=== PATIENT | female | born 1955 | race Caucasian/White ===

== ENCOUNTER → 2017-03-22 | Outpatient (CLI) | payer BC ==
--- NOTE | 2017-03-22 12:43 | XR ---
EXAMINATION TYPE: XR thoracic spine complete DATE OF EXAM: 03/22/2017 CLINICAL HISTORY: Fall with mid back pain. TECHNIQUE: Frontal, lateral, and swimmer's view of thoracic spine are obtained. COMPARISON: None. FINDINGS: Thoracic spine show satisfactory alignment without evidence of acute fracture or dislocatio n. Vertebral body heights and disc space heights are preserved. No displaced fracture within the vis ualized ribs. Visualized lungs are clear. Cardiac silhouette is prominent in size. IMPRESSION: No acute fracture or dislocation is seen in the thoracic spine.
== END | disposition home or self-care (01) ==
LOC: RADXRMAIN 12:08
PROVIDERS: ATTEND Family Medicine
DX: M54.14 Radiculopathy, thoracic region (principal)
CPT/HCPCS: 72072

== ENCOUNTER → 2017-04-05 | Outpatient (CLI) | payer BC ==
--- NOTE | 2017-04-05 08:42 | US ---
EXAMINATION TYPE: US abdomen complete DATE OF EXAM: 04/05/2017 COMPARISON: NONE CLINICAL HISTORY: K83.9 Disease of biliary tract. Patient stated has constant right upper back pain r adiating to front x 1 month and was told possible dislocated rib per chiropractor. EXAM MEASUREMENTS: Liver Length: 15.0 cm Gallbladder Wall: 0.2 cm CBD: 0.5 cm Spleen: 10.2 cm Right Kidney: 9.9 x 6.1 x 5.1 cm Left Kidney: 10.0 x 6.0 x 5.4 cm Pancreas: wnl Liver: There is slight heterogeneity of the hepatic parenchyma with decreased visualization of the p ortal triads. This finding limits evaluation for underlying hepatic masses. No intrahepatic biliary d uctal dilatation. Gallbladder: wnl Evidence for sonographic Harris's sign: Yes CBD: wnl Spleen: wnl Right Kidney: wnl Left Kidney: wnl Upper IVC: wnl Abd Aorta: wnl IMPRESSION: Mild hepatic parenchymal heterogeneity, most commonly relating to hepatic steatosis. No s onographic evidence of cholelithiasis or cholecystitis. No intrahepatic biliary ductal dilatation.
== END | disposition home or self-care (01) ==
LOC: RADUSWWP 07:37
PROVIDERS: ATTEND Family Medicine
DX: K76.0 Fatty (change of) liver, not elsewhere classified (principal)
CPT/HCPCS: 76700

== ENCOUNTER → 2017-04-12 | Outpatient (CLI) | payer BC ==
--- NOTE | 2017-04-12 09:21 | NM ---
EXAMINATION TYPE: NM hepatobiliary w EF DATE OF EXAM: 04/12/2017 COMPARISON: Complete abdominal ultrasound from one week ago. HISTORY: Disorder of biliary tract per order. Epigastric pain per order. TECHNIQUE: After the intravenous administration of 5.49 mCi Tc 99m Mebrofenin hepatobiliary scintigra phy is performed. Immediate images post injection. FINDINGS: There is satisfactory initial accumulation of tracer by the liver. The gallbladder is visualized wit hin 20 minutes. The small bowel activity is now well seen even after 60 minutes. At one hour 8 ounc es of oral ensure plus is given to mimic CCK and gallbladder ejection fraction is calculated at 98 %, not deviated from the normal range. Therefore there is no scintigraphic evidence of cystic or commo n bile duct obstruction to suggest acute cholecystitis. IMPRESSION: Ejection fraction is 98%, some consider this abnormal or a hyperkinetic response.
== END | disposition home or self-care (01) ==
LOC: RADNMMAIN 06:58
PROVIDERS: ATTEND Family Medicine
DX: K83.9 Disease of biliary tract, unspecified (principal)
CPT/HCPCS: 78226; A9537

== ENCOUNTER → 2017-04-22 | Outpatient (CLI) | payer BC ==
--- NOTE | 2017-04-22 16:27 | BD ---
EXAMINATION TYPE: MG DEXA axial skeleton. DATE OF EXAM: 04/22/2017 COMPARISON: 12.30.2006 CLINICAL HISTORY: 61-year-old female Z78.0 POST MAEGAN W/O HRT Height: 60.3 Weight: 204 FRAX RISK QUESTIONS: Alcohol (3 or more units per day): NO Family History (Parent hip fracture): NO Glucocorticoids (More than 3mos): NO (Ex: prednisone, prednisolone, methylprednisolone, dexamethasone, and hydrocortisone). History of Fracture in Adulthood: NO Secondary Osteoporosis: NO 1. Type 1 Diabetes: NO 2. Hyperthyroidism: NO 3. Menopause before 45: NO 4. Malnutrition: NO 5. Chronic liver disease: NO Rheumatoid Arthritis: NO Current Tobacco Use: NO RISK FACTORS HISTORY OF: Family History of Osteoporosis: NO Active: YES Diet low in dairy products/other sources of calcium: YES, ALLERGIC Postmenopausal woman: TOTAL HYSTERECTOMY AT AGE 48 Hyperparathyroidism: NO Adrenal Insufficiency: NO MEDICATIONS: Prednisone or other steroids: ASTHMA INHALERS PRN, STEROID PACS ON AND OFF....LAST TAKEN 2016 How Long: YRS Thyroid Medications: IN THE PAST FOR 4 YRS How Lon YRS...BUT NONE NOW Additional Medications: VIT D Additional History: NONE TO NOTE EXAM MEASUREMENTS: Bone mineral densitometry was performed using the [employer] System. Bone mineral density as measured about the Lumbar spine is: ----- L1-L4(G/cm2): 1.094 T Score Values are as follows: ----- L1: -0.6 ----- L2: -1.2 ----- L3: -0.2 ----- L4: -1.0 ----- L1-L4: -0.7 Bone mineral density has: Decreased -0.5% since study of: 12.30.2006 Bone mineral density about the R hip (g/cm2): 1.029 Bone mineral density about the L hip (g/cm2): 1.139 T Score values are as follows: -----R Neck: -0.8 -----L Neck: -0.8 -----R Total: 0.2 -----L Total: 1.0 Bone mineral density has: Decreased -3.8% since study of: 12.30.2006 FRAX%'S: THERE IS A 6.1% CHANCE OF A MAJOR OSTEOPOROTIC FX AND A 0.3% FOR A HIP FX....PROBABILITY OF FX IN 10 YRS TIME IMPRESSION: Normal (Values between +1 and -1 indicate normal bone mass). Consider repeating this study in 5 year s or sooner if there is some new clinical indication. Note that measurements are bordering on osteope luis in the lumbar spine. NOTE: T-SCORE=SD OF THE YOUNG ADULT MEAN.
--- NOTE | 2017-04-23 07:30 | MM ---
Reason for exam: screening (asymptomatic). Last mammogram was performed 2 years and 2 months ago. History: Patient is postmenopausal and is nulliparous. Family history of breast cancer in aunt at age 62 and breast cancer in aunt at age 64. Physical Findings: A clinical breast exam by your physician is recommended on an annual basis and results should be correlated with mammographic findings. MG Screening Mammo w CAD Bilateral CC and MLO view(s) were taken. Prior study comparison: February 18, 2015, bilateral MG diagnostic mammo w CAD [facility]. March 02, 2013, bilateral digital screening mammo w/CAD. The breast tissue is almost entirely fat. No suspicious abnormality. No significant changes when compared with prior studies. ASSESSMENT: Negative, BI-RAD 1 RECOMMENDATION: Routine screening mammogram of both breasts in 1 year.
== END | disposition home or self-care (01) ==
LOC: RADMAMWWP 08:07
PROVIDERS: ATTEND Family Medicine
DX: Z12.31 Encounter for screening mammogram for malignant neoplasm of breast (principal); M89.9 Disorder of bone, unspecified; Z78.0 Asymptomatic menopausal state
CPT/HCPCS: 77080; G0202

== ENCOUNTER → 2017-08-05 | Outpatient (CLI) | payer BC ==
--- NOTE | 2017-08-05 11:26 | MR ---
EXAMINATION TYPE: MR thoracic spine wo con DATE OF EXAM: 08/05/2017 COMPARISON: NONE HISTORY: 61-year-old female Pain in thoracic spine, right side TECHNIQUE: Multiplanar, multisequence images of the thoracic spine were obtained without IV contrast. FINDINGS: Accentuated midthoracic kyphosis. Alignment is maintained. Vertebral body heights are preserved thoug h there may be minimal superior endplate compression deformity of T3 which is chronic given normal agustina ne marrow signal. Fatty matrix hemangioma within T11 vertebral body. No suspicious bone marrow replacement. Mild multilevel degenerative disc disease characterized by disc desiccation and mild disc space narro wing, greatest in the mid thoracic spine. However, at T2-3 and T3-T4, central disc protrusions are present which impresses onto the ventral cor d. However, no significant spinal canal stenosis is seen. At T6/T7, there is a small right paracentral disc protrusion which abuts the right ventral cord. No s ignificant spinal canal stenosis. At T7-T8, left paracentral broad-based disc protrusion without significant canal stenosis. Facet arthropathy lower thoracic spine but without any significant neuroforaminal stenosis. No discrete T2-weighted cord signal abnormality. No prevertebral or paravertebral soft tissue abnormality. IMPRESSION: 1. Mild multilevel degenerative disc disease with disc desiccation and small disc protrusions greates t in the mid thoracic spine. 2. The small disc herniations are largest at T2-T3 and T3-T4 where they focally indent the ventral co rd, without significant spinal canal stenosis. 3. There may be a minimal chronic superior endplate compression deformity of T3. 4. Mild facet arthropathy lower thoracic spine. No significant neural foraminal stenosis.
== END | disposition home or self-care (01) ==
LOC: RADMRIMAIN 08:43
PROVIDERS: ATTEND Family Medicine
DX: M51.24 Other intervertebral disc displacement, thoracic region (principal); M51.34 Other intervertebral disc degeneration, thoracic region; M46.84 Other specified inflammatory spondylopathies, thoracic region
CPT/HCPCS: 72146

== ENCOUNTER → 2017-08-13 | Outpatient (CLI) | payer BC ==
[2017-08-14 00:32] LABS: Progesterone 0.9 ng/mL
== END | disposition home or self-care (01) ==
LOC: MMGSC 11:04
PROVIDERS: ATTEND Obstetrics & Gynecology
DX: N95.1 Menopausal and female climacteric states (principal); G47.00 Insomnia, unspecified; M85.80 Other specified disorders of bone density and structure, unspecified site
CPT/HCPCS: 36415; 82670; 83001; 84144; 84403

== ENCOUNTER 2019-01-16 07:23 | Emergency (ER) | payer BC ==
[2019-01-16] MEDS ORDERED: PROPARACAINE 0.5% OPHTH DROPS 15 ML BTL RIGHT EYE STA (07:33)
--- NOTE | 2019-01-16 07:36 | ED ---
Eye Problem HPI - General Chief complaint: Eye Problems Stated complaint: FB in eye Time Seen by Provider: 01/16/19 07:29 Source: patient Mode of arrival: ambulatory Limitations: no limitations - History of Present Illness Initial comments: 63-year-old female presents today for chief complaint of left eye discomfort. Patient states that she was in her yard when she felt something flew into her left eye. She states she was walking at the time. She states she was not grinding metal. She states that she thought it was a bug. She states a few hours after the fall into the eye she had eye watering and slight redness and discomfort. Patient denies any headache nausea vomiting, working with welding, cutting wood. Patient states that when she woke up her eye was tender and sensitive to light so she presented for evaluation of possible foreign body of the left eye. Remaining ROS (-). Upon arrival patient appears well there are no signs of acute distress. - Related Data Home Medications Medication Instructions Recorded Confirmed Ergocalciferol [Vitamin D2] 50,000 unit PO MACKEY 01/16/19 01/16/19 Previous Rx's Medication Instructions Recorded Erythromycin Ophth Oint [Romycin 1 applic LEFT EYE QID 5 Days #1 01/16/19 Ophth Oint] tube Allergies Allergy/AdvReac Type Severity Reaction Status Date / Time No Known Allergies Allergy Verified 01/16/19 08:04 Review of Systems ROS Statement: Those systems with pertinent positive or pertinent negative responses have been documented in the HPI. ROS Other: All systems not noted in ROS Statement are negative. Past Medical History Past Medical History: No Reported History History of Any Multi-Drug Resistant Organisms: None Reported Past Surgical History: Hysterectomy Past Psychological History: Depression Smoking Status: Never smoker Past Alcohol Use History: None Reported Past Drug Use History: None Reported General Exam - General Exam Comments Initial Comments: General: The patient is awake and alert, in no distress, and does not appear acutely ill. Eye: +3 mm pupils are equal, round and reactive to light, extra-ocular movemen ts are intact. No nystagmus. There is normal conjunctiva bilaterally. No signs of icterus. VA 20/70 OD, 20/30 OS, 20/30 OU. Mild swelling of left upper lid. No evidence of foreign body under the left lid. Upon fluorescein examination there is a small corneal abrasion at the 3 o'clock position just left of the pupil. Patient has relief with proparacaine. Ears, nose, mouth and throat: There are moist mucous membranes and no oral lesions. Neck: The neck is supple, there is no tenderness or JVD. Cardiovascular: There is a regular rate and rhythm. No murmur, rub or gallop is appreciated. Respiratory: Lungs are clear to auscultation, respirations are non-labored, breath sounds are equal. No wheezes, stridor, rales, or rhonchi. Musculoskeletal: Normal ROM, no tenderness. Strength 5/5. Sensation intact. Radial pulses equal bilaterally 2+. Neurological: A&O x 3. CN II-XII intact grossly, There are no obvious motor or sensory deficits. Coordination appears grossly intact. Speech is normal. Skin: Skin is warm and dry and no rashes or lesions are noted. Psychiatric: Cooperative, appropriate mood & affect, normal judgment. Limitations: no limitations Course Vital Signs 01/16/19 01/16/19 07:25 07:58 Temperature 98.1 F 97.1 F L Pulse Rate 64 68 Respiratory 16 18 Rate Blood Pressure 154/90 134/86 O2 Sat by Pulse 97 95 Oximetry Medical Decision Making - Medical Decision Making 63-year-old presenting for sensation of foreign body left eye. Leaflets with proparacaine. Physical examination reveals small corneal abrasion. No evidence of foreign body. No foreign body on lid examination. Patient be started on erythromycin given up large follow-up. Return parameters were discussed the patient verbalized understanding. Patient is not a contact lens user. Case is discussed with attending Dr. Muñoz was agreeable care plan discharge at this time. Disposition Clinical Impression: Corneal abrasion, left Disposition: HOME SELF-CARE Condition: Good Instructions (If sedation given, give patient instructions): Corneal Abrasion (ED) Additional Instructions: Please use medication as discussed. Please follow-up with ophthalmology within the next 24-48 hours. Please return to emergency room if the symptoms increase or worsen or for any other concerns. Prescriptions: Erythromycin Ophth Oint [Romycin Ophth Oint] 1 applic LEFT EYE QID 5 Days #1 tube Is patient prescribed a controlled substance at d/c from ED?: No Referrals: Wilma Foster MD [Primary Care Provider] - 1-2 days Stephanie Marley MD [STAFF PHYSICIAN] - 1-2 days Time of Disposition: 07:49
[2019-01-16 07:59] VITALS: BP 134/86; PULSE 68; RESP 18; TEMP 97.1
== END 2019-01-16 07:59 | disposition home or self-care (01) ==
LOC: EC 07:23
DX: S05.02XA Injury of conjunctiva and corneal abrasion without foreign body, left eye, initial encounter (principal); Z79.899 Other long term (current) drug therapy; W22.8XXA Striking against or struck by other objects, initial encounter; Y92.096 Garden or yard of other non-institutional residence as the place of occurrence of the external cause
CPT/HCPCS: 99283

== ENCOUNTER → 2020-03-12 | Outpatient (CLI) | payer BC ==
--- NOTE | 2020-03-13 09:55 | MM ---
Reason for exam: screening (asymptomatic). Last mammogram was performed 2 years and 11 months ago. History: Patient is postmenopausal and is nulliparous. Family history of breast cancer in aunt at age 62 and breast cancer in aunt at age 64. Physical Findings: A clinical breast exam by your physician is recommended on an annual basis and results should be correlated with mammographic findings. MG 3D Screening Mammo W/Cad Bilateral CC and MLO view(s) were taken. Prior study comparison: April 22, 2017, bilateral MG screening mammo w CAD. February 18, 2015, bilateral MG diagnostic mammo w CAD [facility]. The breast tissue is almost entirely fat. There is no discrete abnormality. No significant changes when compared with prior studies. ASSESSMENT: Negative, BI-RAD 1 RECOMMENDATION: Routine screening mammogram of both breasts in 1 year.
== END | disposition home or self-care (01) ==
LOC: RADMAMWWP 15:20
PROVIDERS: ATTEND Obstetrics & Gynecology
DX: Z12.31 Encounter for screening mammogram for malignant neoplasm of breast (principal)
CPT/HCPCS: 77063; 77067

== ENCOUNTER → 2020-07-01 | Outpatient (CLI) | payer BC ==
--- NOTE | 2020-07-01 14:45 | US ---
EXAMINATION TYPE: US thyroid st tissue head/neck DATE OF EXAM: 07/01/2020 COMPARISON: US 2013 CLINICAL HISTORY: E03.9 Hypothyroidism, unspecified. Abnormal labs GLAND SIZE: Right Lobe: 4.3 x 1.1 x 1.3 cm Overall Parenchyma: heterogenous Left Lobe: 4.2 x 1.2 x 1.2 cm Overall Parenchyma: heterogeneous Isthmus Thickness: 0.2 cm NODULES RIGHT: # of nodules measured on right: 1 1. 0.5 X 0.4 x 0.4 cm mixed cystic and solid, hypoechoic nodule, which is wider than tall, with smo oth margins, without echogenic foci. Prior size: Not visualized on prior Bilateral neck scanned, no evidence of lymphadenopathy. Small, sub-centimeter nodule right lobe. Slightly heterogeneous small size thyroid with 5 mm mixed nodule right thyroid lobe seen on current s tudy not clearly seen on prior study. IMPRESSION: As above. No worrisome greater than 1 cm thyroid nodules. Small-sized thyroid redemonstra deja.
== END | disposition home or self-care (01) ==
LOC: RADUSWWP 14:19
PROVIDERS: ATTEND Family Medicine
DX: E04.1 Nontoxic single thyroid nodule (principal); E07.89 Other specified disorders of thyroid; E03.9 Hypothyroidism, unspecified
CPT/HCPCS: 76536

== ENCOUNTER → 2021-01-06 | Outpatient (CLI) | payer BC ==
--- NOTE | 2021-01-06 12:34 | US ---
EXAMINATION TYPE: US thyroid st tissue head/neck DATE OF EXAM: 01/06/2021 COMPARISON: US 07/01/20, 12/13/12 CLINICAL HISTORY: E04.1 Thyroid nodule. GLAND SIZE: Right Lobe: 4.2 x 1.5 x 1.3 cm Overall Parenchyma: homogenous Left Lobe: 4.1 x 1.4 x 1.3 cm Overall Parenchyma: homogeneous Isthmus Thickness: 0.4 cm NODULES RIGHT: # of nodules measured on right: 1 1. 0.7 X 0.5 x 0.4 cm, mid lateral, solid or almost completely solid, hypoechoic nodule, which is w ider than tall, with smooth margins, without echogenic foci. Prior size: 0.5 x 0.4 x 0.4 cm LEFT: # of nodules measured on left: 1 1. 0.7 X 0.4 x 0.4 cm, lower medial, solid or almost completely solid, hypoechoic nodule, which is wider than tall, with smooth margins, without echogenic foci. Prior size: Not seen previously ISTHMUS: # of nodules measured in the isthmus: 0 Bilateral neck scanned, no evidence of lymphadenopathy. IMPRESSION: 1. The right thyroid nodule has increased in size since the prior examination now measuring up to 0.7 cm. 2. New 0.7 cm hypoechoic nodule in the left thyroid. 2017 ACR TI-RADS LEVEL: TR-RADS 4 - Moderately Suspicious: Follow if > 1 cm, FNA if > 1.5 cm *Highest TI-RADS level nodule reported
== END | disposition home or self-care (01) ==
LOC: RADUSWWP 11:08
PROVIDERS: ATTEND Family Medicine
DX: E04.2 Nontoxic multinodular goiter (principal)
CPT/HCPCS: 76536

== ENCOUNTER → 2022-02-24 | Outpatient (CLI) | payer BC ==
--- NOTE | 2022-02-24 13:26 | US ---
EXAMINATION TYPE: US carotid duplex BILAT DATE OF EXAM: 02/24/2022 COMPARISON: NONE CLINICAL HISTORY: R42 VERTIGO. Pt states vertigo TECHNIQUE: Carotid duplex ultrasound examination. Indirect Doppler criteria was utilized. FINDINGS: EXAM MEASUREMENTS: RIGHT: Peak Systolic Velocity (PSV) cm/sec ----- Right CCA: 79.9 ----- Right ICA: 72.9 ----- Right ECA: 63.3 ICA/CCA ratio: 0.9 RIGHT: End Diastole cm/sec ----- Right CCA: 18.8 ----- Right ICA: 29.3 ----- Right ECA: 17.1 LEFT: Peak Systolic Velocity (PSV) cm/sec ----- Left CCA: 63.3 ----- Left ICA: 79.9 ----- Left ECA: 79.0 ICA/CCA ratio: 1.3 LEFT: End Diastole cm/sec ----- Left CCA: 21.5 ----- Left ICA: 33.7 ----- Left ECA: 15.4 VERTEBRALS (direction of flow): Right Vertebral: Antegrade Left Vertebral: Antegrade Rhythm: Normal SENIOR [employer]INICAL PROJECT MANAGER NOTES: No significant stenosis seen IMPRESSION: Less than 50% stenosis of the bilateral carotid bifurcations. Criteria for Assigning % of Stenosis / Diameter reduction (Estimation based on the indirect measurements of the internal carotid artery velocities (ICA PSV). 1. Normal (no stenosis)=ICA PSV < 125 cm/s: ratio < 2.0: ICA EDV<40 cm/s. 2. Less than 50% stenosis=ICA PSV < 125 cm/s: ratio < 2.0: ICA EDV<40 cm/s. 3. 50 to 69% stenosis=ICA PSV of 125 to 230 cm/s: ration 2.0 ? 4.0: ICA EDV 40-100 cm/s. 4. Greater than 70% stenosis to near occlusion= ICA PSV > 230 cm/s: ratio > 4.0: ICA EDV > 100 cm/s. 5. Near occlusion= ICA PSV velocities may be low or undetectable: variable ratio and ICA EDV. 6. Total occlusion=unable to detect flow.
== END | disposition home or self-care (01) ==
LOC: RADUSWWP 12:55
PROVIDERS: ATTEND Family Medicine
DX: I65.23 Occlusion and stenosis of bilateral carotid arteries (principal)
CPT/HCPCS: 93880

== ENCOUNTER → 2023-01-19 | Outpatient (CLI) | payer MEDICARE, BC ==
--- NOTE | 2023-01-20 07:03 | BD ---
EXAMINATION TYPE: Axial Bone Density DATE OF EXAM: 01/19/2023 CLINICAL HISTORY: 67 years old Female. ICD-10 CODE: N95.1 POST MENOPAUSAL Height: 5 ft 1 in Weight: 209 FRAX RISK QUESTIONS: Alcohol (3 or more units per day): no Family History (Parent hip fracture): no Glucocorticoids (More than 3mos): no (Ex: prednisone, prednisolone, methylprednisolone, dexamethasone, and hydrocortisone). History of Fracture in Adulthood: yes Secondary Osteoporosis: 1. Type 1 Diabetes: no 2. Hyperthyroidism: no 3. Menopause before 45: yes 4. Malnutrition: no 5. Chronic liver disease: no Rheumatoid Arthritis: no Current Tobacco Use: no RISK FACTORS HISTORY OF: Surgery to Spine/Hip(right/left)/Wrist (right/left): no Family History of Osteoporosis: no Active: yes Diet low in dairy products/other sources of calcium: no Postmenopausal woman: yes Take estrogen and/or progesterone medications: none now Lost more than 2 inches in height since high school: no Frequent falls: no Poor Health: good Hyperparathyroidism: no Adrenal Insufficiency: no MEDICATIONS: Additional Medications: depression meds, Additional History: EXAM MEASUREMENTS: Bone mineral densitometry was performed using the [employer] System. Bone mineral density as measured about the Lumbar spine is: ----- L1-L4(G/cm2): 1.170 T Score Values are as follows: ----- L1: 0.1 ----- L2: -0.7 ----- L3: 0.4 ----- L4: -0.2 ----- L1-L4: -0.1 Z Score Values are as follows: ----- L1: 0.7 ----- L2: -0.1 ----- L3: 1.0 ----- L4: 0.4 ----- L1-L4: 0.5 Bone mineral density has: increased 6.9 % since study of: 2017 Bone mineral density about the R hip (g/cm2): 0.964 Bone mineral density about the L hip (g/cm2): 0.919 T Score values are as follows: -----R Neck: -0.5 -----L Neck: -0.9 -----R Total: 0.7 -----L Total: 1.1 Z Score values are as follows: -----R Neck: 0.3 -----L Neck: 0.0 -----R Total: 1.2 -----L Total: 1.6 Bone mineral density has: increased 3.5 % since study of: 2017 FRAX%s: The graph provided illustrates a 11.5 % chance for a major osteoporotic fx and a 0.7 % chanc e for the hips probability for fx in 10 years time. IMPRESSION: Normal (Values between +1 and -1 indicate normal bone mass). Consider repeating this study in 5 year s or sooner if there is some new clinical indication. NOTE: T-SCORE=SD OF THE YOUNG ADULT MEAN.
--- NOTE | 2023-01-20 08:12 | MM ---
Reason for Exam: Screening (asymptomatic). Last mammogram was performed 2 year(s) and 10 month(s) ago. Patient History: Menarche at age 15. Patient has no children. Left ovary removed at age 46. Right ovary removed at age 46. Hysterectomy at age 46. Postmenopausal. Maternal aunt had breast cancer, age 62. Risk Values: Dorcas 5 year model risk: 1.8%. NCI Lifetime model risk: 6.9%. Prior Study Comparison: 02/18/2015 Bilateral Diagnostic Mammogram, [facility]. 04/22/2017 Bilateral Screening Mammogram, [facility]. 03/12/2020 Bilateral Screening Mammogram, [facility]. Tissue Density: There are scattered fibroglandular densities. Findings: Analyzed By CAD. There is no suspicious group of microcalcifications or new suspicious mass in either breast. Stable chronic nodularity within left breast. Overall Assessment: Benign, BI-RAD 2 Management: Screening Mammogram of both breasts in 1 year. A clinical breast exam by your physician is recommended on an annual basis and results should be correlated with mammographic findings. Note on Dorcas scores and lifetime risk: 1. A Dorcas score greater than 3% is considered moderate risk. If this is the case, consider specialist referral to assess eligibility for a risk reducing agent. If overall lifetime risk for the development of breast cancer is 20% or higher, the patient may qualify for future screening with alternating mammogram and breast MRI. Electronically signed and approved by: Pete Barcenas D.O.
== END | disposition home or self-care (01) ==
LOC: RADMAMWWP 14:40
PROVIDERS: ATTEND Family Medicine
DX: Z12.31 Encounter for screening mammogram for malignant neoplasm of breast (principal); M85.852 Other specified disorders of bone density and structure, left thigh; Z78.0 Asymptomatic menopausal state; Z80.3 Family history of malignant neoplasm of breast
CPT/HCPCS: 77063; 77067; 77080